=== PATIENT | female | born 1980 | race Caucasian/White ===

== ENCOUNTER 2021-09-14 18:54 | Emergency (ER) | payer OTHER ==
[~2021-09-14] VITALS: Ht 167.6 cm; Wt 77.1 kg
[~2021-09-14 18:54] MED LIST: CLINDAMYCIN HC300 MG PO; CYCLOBENZAPRINE5 MG PO; IBUPROFEN800 MG PO; METHERGINE0.2 MG PO; NORCO 5-325 TA1 EACH PO; PENICILLIN V P500 MG PO; RANITIDINE HCL150 MG PO; TRAMADOL HCL50 MG PO
== END 2021-09-14 20:50 | disposition home or self-care (01) ==
LOC: ED 18:54
DX: S80.12XA Contusion of left lower leg, initial encounter (principal); W01.198A Fall on same level from slipping, tripping and stumbling with subsequent striking against other object, initial encounter; F17.200 Nicotine dependence, unspecified, uncomplicated; Z91.040 Latex allergy status; Z91.018 Allergy to other foods
CPT/HCPCS: 73590; 99283-25; A9270